=== PATIENT | female | born 1960 | race Caucasian/White ===

== ENCOUNTER 2023-05-31 21:37 | Inpatient (IN) | payer BC ==
[~2023-05-31] VITALS: Ht 170.2 cm; Wt 70.0 kg
--- NOTE | 2023-05-31 21:37 | NUR ---
PT TO ER ROOM 13 VIA WHEELCHAIR.
[2023-05-31 21:50] VITALS: BP 138/79
[2023-05-31 22:00] VITALS: BP 108/90
[2023-05-31 22:09] LABS: BASO% 0.5 % (0-3); HEMATOCRIT 43.7 % (37.0-47.0); HEMOGLOBIN 14.8 g/dl (12.0-16.0); IMMATURE GRANULOCYTES 0.3 % (0.0-5.0); LYMPH% 41.3 % (15-41); MEAN CELL VOLUME 84.9 fL CALC (80.0-100.0); MEAN CORPUSCULAR HGB 28.7 pG CALC (26.0-32.0); MEAN CORPUSCULAR HGB CONC 33.9 g/dL CAL (32.0-36.0); NEUT# 3.72 thou/uL (2.00-7.15); NEUT% 48.9 % (42-76); RED BLOOD COUNT 5.15 mill/uL (4.20-5.60); RED CELL DISTRI WIDTH 12.6 % (11.5-15.5)
--- NOTE | 2023-05-31 22:11 | NUR ---
PT EDUACTED ON THE NEED FOR A URINE SAMPLE. URINE CUP PROVIDED.
[2023-05-31 22:14] LABS: ALBUMIN 4.8 g/dL (3.2-5.0); ALKALINE PHOSPHATASE 112 u/l (38-126); ANION GAP 15 (6-22 (CALC)); BILIRUBIN, TOTAL 0.4 mg/dL (0.02-1.3); BUN 17 mg/dL (8-23); BUN/CREATININE RATIO 26 (12-20 (CALC)); CARBON DIOXIDE 22 mmol/l (22-30); CHLORIDE 104 mmol/l (95-108); CPK 60 u/l (30-135); CREATININE 0.7 mg/dL (0.5-1.0); GFR FOR AFR.AMER. > 60 ML/MIN (>=60 (CALC)); GFR OTHER RACES > 60 ML/MIN (>=60 (CALC)); LIPASE 76 u/l (23-300); MAGNESIUM 1.9 mg/dL (1.6-2.3); POTASSIUM 3.9 mmol/l (3.5-5.1); SGOT/AST 33 u/l (9-36); SODIUM 137 mmol/l (137-146); TOTAL PROTEIN 7.9 g/dL (6.3-8.2)
[2023-05-31 22:20] LABS: PROTHROMBIN TIME 9.7 SECONDS (9.0-12.5)
[2023-05-31 22:31] VITALS: BP 151/75
--- NOTE | 2023-05-31 22:41 | NUR ---
PATIENT ASSISTED TO BATHROOM, PROVIDED WITH URINE SPECIMEN CUP. SPOUSE AT [facility].
[2023-05-31 22:59] LABS: URINE BILIRUBIN - DIPSTICK Negative (NEGATIVE); URINE BLOOD DIPSTICK Trace-intact (NEGATIVE); URINE GLUCOSE - DIPSTICK Negative (NEGATIVE); URINE KETONE Negative (NEGATIVE); URINE LEUK ESTERASE Trace (NEGATIVE); URINE NITRITE - DIPSTICK Negative (Negative); URINE PROTEIN - DIPSTICK Negative (NEG-TRACE); URINE SPECIFIC GRAVITY 1.015; URINE UROBILINOGEN - DIPSTICK 0.2 E.U./dL (0.2)
[2023-05-31 23:02] LABS: URINE COLOR Yellow
--- NOTE | 2023-05-31 23:15 | NUR ---
PATIENT STATES "ARE YOU GOING TO HOOK ME BACK UP TO MY PAIN MEDICATIONS?" EDUCATED PATIENT THAT SHE WAS GIVEN MEDICATIONS THROUGH THE IV, BUT THE FLUID HANGING IS NORMAL SALINE.
--- NOTE | 2023-05-31 23:45 | NUR ---
PATIENT RETURNED FROM CT SCAN
[2023-06-01] VITALS (12 sets, daily range): BP systolic 133–163; BP diastolic 67–92
--- NOTE | 2023-06-01 00:02 | NUR ---
CLARIFICATION TO ADMINISTER ROCEPHIN SOUGHT FROM . PER MD HE APPROVES OVERRIDE AND ANTIBIOTIC CAN BE GIVEN SAFETY TO PATIENT.
--- NOTE | 2023-06-01 00:37 | NUR ---
PATIENT DECLINED NEED FOR ZOFRAN OR PAIN MEDICATION AT THIS TIME.
--- NOTE | 2023-06-01 00:56 | NUR ---
CALL TO CARDINAL REGARDING HURRICANE SPRAY VERIFICATION.
--- NOTE | 2023-06-01 01:23 | NUR ---
NG TUBE INSERTED BY Suhas GARCÍA RN. PATIENT TOLERATED WELL. 200 CC OF UNDIGESTED FOOD IMMEDIATELTY IN CANNISTER. CONFIRMATION BY AUSCULTATION.
[2023-06-01] MEDS ORDERED: ZESTRIL10 M1 PO (01:45)
[2023-06-01] MEDS ORDERED: VITAMIN E400 UNIT PO (01:46)
[2023-06-01] MEDS ORDERED: CHOLESTOFF450 MG PO (01:46)
[2023-06-01] MEDS ORDERED: OMEPRAZOLE DR20 MG PO (01:47)
[2023-06-01] MEDS ORDERED: CELECOXIB200 MG PO (01:48)
[2023-06-01] MEDS ORDERED: ESTER-C500 M2 PO (01:50)
--- NOTE | 2023-06-01 02:55 | NUR ---
REPORT CALLED TO Neda ALEX RN
--- NOTE | 2023-06-01 03:20 | NUR ---
PATIENT TO ROOM 272. CARE HANDED OVER TO Neda ALEX RN.
--- NOTE | 2023-06-01 07:00 | NUR ---
RECIEVED BEDSIDE REPORT
--- NOTE | 2023-06-01 08:31 | NUR ---
PT RESTING IN BRET FOWLERS POSITION. PT A/OX3. RESPIRATIONS EVEN AND UNLABORED. LUNG SOUNDS CLEAR. HEART RHYTHM NORMAL WITH TELE IN PLACE. BOWEL SOUNDS HYPOACTIVE. #20G RAC PATENT. SKIN INTACT. LEFT NG TUBE AT LOW INTERMITE SUCTION NOTED. PT DENIES OF ANY PAINS OR DISCOMFORTS. PT ORIENTED TO ROOM AND CALL LIGHT SYSTEM. ALL SAFETY PRECAUTIONS ARE IN PLACE WITH CALL LIGHT IN REACH.
--- NOTE | 2023-06-01 13:11 | NUR ---
PT ARRIVED BACK FROM OR ASSISTED BY OR STAFF VIA STRETCHER. PT A/OX3 BUT STILL DORWSY. RESPIRATIONS EVEN AND UNLABORED ON 2L NC. TELE MONITORING PLACED. IV SITE PATENT INFUSING WITH EASE. SCDS IN PLACE. INCISION SITE TO RIGHT GROIN WITH DERMABOND NOTED, REMAINS CDI. MOYA CATH DRAINING PER GRAVITY. ENGRAVER PICTURE INFORMED IN REPORT THAT MOYA CAN BE DC ONCE PT HAS MORE SENSATION IN LEGS AND CAN LIFT BUTT OFF BED. PT DID RECIEVED SPINAL. PT DENIES OF ANY PAINS OR DISCOMFORT AT THIS TIME. PT ORIENTED TO ROOM AND CALL LIGHT. ALL SAFETY PRECAUTIONS ARE IN PLACE WITH CALL LIGHT IN REACH. WILL CONTINUE TO MONITOR
--- NOTE | 2023-06-01 16:05 | NUR ---
PT RESTING IN SEMI FOWLERS POSITION WITH EYES CLOSED. RESPIRATIONS EVEN AND UNLABORED ON ROOM AIR. TELE MONITORING IN PLACE. MOYA DRAINING PER GRAVITY. IVF INFUSING PER ORDER. MOYA DRAINING PER GRAVITY. PT DENIES OF ANY NEEDS. ALL SAFETY PRECAUTIONS IN PLACE WITH CALL LIGHT IN REACH
--- NOTE | 2023-06-01 17:39 | NUR ---
PT ABLE TO LIFT BUTT OFF BED AND SCOOT SELF UP IN BED. PT REQUEST MOYA TO REMOVED AT THIS TIME. MOYA REMOVED. PT TOLERATED WELL. PT EDUCATED ON NEED TO URINATE. BSC IN PLACE. PT INSTRUCTED TO CALL.
--- NOTE | 2023-06-01 17:39 | NUR ---
MOYA CATH REMOVED AT THIS TIME. PT TOLERATED WELL. PT EDUCATED ON NEED TO URINATE. BSC IN PLACE. PT INSTRUCTED TO CALL FOR GETTING OUT OF BED.
[2023-06-02 03:31] VITALS: BP 154/77
--- NOTE | 2023-06-02 03:42 | NUR ---
PT OOB TO BATHROOM SEVERAL TIMES. VOIDING WITHOUT DIFFICULTY. INCISION RT GROIN DRY AND INTACT. MEDICATED FOR PAIN X 3 WITH GOOD EFFECT. RESPIRATIONS ARE EVEN NON LABORED. LISSA CLEAR LIQUIDS WELL. SCDS ON. IV FLUIDS INFUSING ORDERED. SAFETY PRECATIONS MAINTAINED CALL LIGHT IN REACH
--- NOTE | 2023-06-02 03:47 | NUR ---
PT MEDICATED WITH ZOFRAN FOR NAUSEA AND WAS GIVEN GINGERALE. RESULTS PENDING. ON TELE NSR [id number]
[2023-06-02 06:43] LABS: BASO% 0.3 % (0-3); EOS% 0.5 % (0-8); IMMATURE GRANULOCYTES 0.2 % (0.0-5.0); LYMPH% 9.8 % (15-41); MEAN CELL VOLUME 87.1 fL CALC (80.0-100.0); MEAN CORPUSCULAR HGB 29.2 pG CALC (26.0-32.0); MEAN CORPUSCULAR HGB CONC 33.5 g/dL CAL (32.0-36.0); MONO% 6.6 % (2-13); NEUT# 8.98 thou/uL (2.00-7.15); NEUT% 82.6 % (42-76); RED BLOOD COUNT 4.25 mill/uL (4.20-5.60); RED CELL DISTRI WIDTH 13.1 % (11.5-15.5)
[2023-06-02 06:55] VITALS: BP 145/68
[2023-06-02 07:00] LABS: HEMOGLOBIN 12.4 g/dl (12.0-16.0)
--- NOTE | 2023-06-02 07:39 | NUR ---
PT IS AOX3, AWAKE AND IN A PLESENT MOOD, DENIES PAIN AT THIS TIME, SURGICAL SITE IS CLEAN, DRY, INSTACT, NO REDNESS, NO SWELLING PRESENT. PT STATES SHE HAS NOT PASSED GAS, BOWEL SOUND ARE HYPOACTIVE AT THIS POINT. STATES SHE IS TOLERATING THE FULL LIQUID DIET. WILL CONTUINE TO MONITOR.
[2023-06-02 07:42] LABS: ALKALINE PHOSPHATASE 75 u/l (38-126); ANION GAP 10 (6-22 (CALC)); BUN 11 mg/dL (8-23); BUN/CREATININE RATIO 21 (12-20 (CALC)); CARBON DIOXIDE 23 mmol/l (22-30); CHLORIDE 106 mmol/l (95-108); CREATININE 0.5 mg/dL (0.5-1.0); GFR FOR AFR.AMER. > 60 ML/MIN (>=60 (CALC)); GFR OTHER RACES > 60 ML/MIN (>=60 (CALC)); MAGNESIUM 1.8 mg/dL (1.6-2.3); POTASSIUM 4.2 mmol/l (3.5-5.1); SGOT/AST 24 u/l (9-36); SODIUM 135 mmol/l (137-146)
[2023-06-02 07:44] LABS: ALBUMIN 3.6 g/dL (3.2-5.0); BILIRUBIN, TOTAL 0.6 mg/dL (0.02-1.3); TOTAL PROTEIN 5.9 g/dL (6.3-8.2)
[2023-06-02 10:32] VITALS: BP 134/68
--- NOTE | 2023-06-02 10:45 | NUR ---
pt missed hat in restroom for urination. a void was placed for this time.
--- NOTE | 2023-06-02 11:26 | NUR ---
DR BLEDSOE AT BEDSIDE DISCUSSING PLAN OF CARE WITH PT.
[2023-06-02 15:15] VITALS: BP 147/80
--- NOTE | 2023-06-02 18:35 | NUR ---
PT ALERT, ORIENTED, DENIES PAIN AT THIS TIME. PT
--- NOTE | 2023-06-02 18:36 | NUR ---
PT WALKED THE [place] TODAY, IS PASSING GAS, NO BM AT THIS TIME.
[2023-06-02 19:28] VITALS: BP 144/70
[2023-06-03 00:10] VITALS: BP 142/72
[2023-06-03 04:17] VITALS: BP 136/57
--- NOTE | 2023-06-03 05:24 | NUR ---
pt slept well with no c/o offered. voided in urinal on tele sr. respirations non labored. safety precautions maintained call light in reach
--- NOTE | 2023-06-03 05:26 | NUR ---
pt ambualted in hallway earlier in shift. states she is passing gas. slept well. refused pain med. voiding without difficulty in bathroom. incision dry and intact. call light in reach
[2023-06-03 07:02] VITALS: BP 143/74
--- NOTE | 2023-06-03 08:06 | NUR ---
RECEIVED BEDSIDE REPORT FROM NURSE NURSE, PATIENT ALERT AND ORINATED X3, PATIENT UP IN CHAIR, NO SIGNS OF DISTRESS OR DISCOMFORT, ON ROOM AIR, PATIENT DENIED ANY PAIN AT THE MOMENT, TELE ON AND INTACT, ALL LEADS ARE IN PLACE, 20 ON LEFT FOREARM IV SITE, IV SITE CLEAN AND INTACT, CALL LIGHT WITHIN REACH, PATIENT VERBALIZED UNDERSTANDING ON HOW TO USE, PERSONAL BELONGINGS ARE WITHIN REACH, BED IN LOWEST POSTION, SAFTEY MEASURES ARE IN PLACE, DENIED NEEDING ANYTHING AT THE MOMENT
[2023-06-03 08:49] VITALS: BP 163/77
[2023-06-03 08:50] VITALS: BP 163/77
--- NOTE | 2023-06-03 08:57 | NUR ---
CALL PLACED TO PER REQUEST DUE TO INCREASED N/V. NO NEW ORDERS RECEIVED AT THIS TIME FROM . NOTIFIED.
--- NOTE | 2023-06-03 09:35 | NUR ---
AT BEDSIDE DISCUSSING POC WITH PT.
[2023-06-03] MEDS ORDERED: PERCOCET 5/325M1 TAB PO (10:40)
--- NOTE | 2023-06-03 11:05 | NUR ---
IV site discontinued, cath intact. No edema , no redness, voices no discomfort. Discharge instructions given. Patient verbalizes understanding of same. Discharged in stable condition via Ambulatory to Home with spouse. All belongings sent with pt.
--- NOTE | 2023-06-03 11:45 | NUR ---
PATIENT DISCHARGED VIA WHEELCHAIR AT 1135, IV EXITED AND WAS INTACT, NO SIGNS OF DISCOMFORT OR DISTRESS, DISCHARGE PAPERWORK AND PATIENT EDUCATION WAS COMPLETED, PATIENT VERBALIZED UNDESTANDING OF DISCHARGE INFORMATION, EDUATED ON SIGNS/SYMPTOMS OF INFECTION, RESTRICTIONS AND FOLLOW UP INFORMATION.
== END 2023-06-03 11:35 | disposition home or self-care (01) | DRG 351 ==
LOC: ED 21:37 → ED-I 06-01 00:15 → ED 06-01 00:29 → MS2 06-01 00:39
PROVIDERS: Internal Medicine; ADMIT Surgery; ATTEND Surgery
PROC: 0YU70JZ Supplement Right Femoral Region with Synthetic Substitute, Open Approach (ICD-10-PCS; principal; 2023-06-01)
PROC: 0YU50JZ Supplement Right Inguinal Region with Synthetic Substitute, Open Approach (ICD-10-PCS; 2023-06-01)
DX: K40.30 Unilateral inguinal hernia, with obstruction, without gangrene, not specified as recurrent (principal); K41.30 Unilateral femoral hernia, with obstruction, without gangrene, not specified as recurrent; I10 Essential (primary) hypertension; K58.9 Irritable bowel syndrome, unspecified; E78.00 Pure hypercholesterolemia, unspecified; Z20.822 Contact with and (suspected) exposure to COVID-19
CPT/HCPCS: C9290; J0690; Q9967